=== PATIENT | female | born 1990 | race Asian ===

== ENCOUNTER → 2019-03-07 | Day surgery (SDC) | payer OTHER ==
--- NOTE | 2019-03-10 10:08 | OP ---
DATE OF OPERATION: 03/10/2019 PREOPERATIVE DIAGNOSIS: Left breast mass 11 o'clock, 2 cm from the nipple. POSTOPERATIVE DIAGNOSIS: Left breast mass 11 o'clock, 2 cm from the nipple. PROCEDURE: Left breast ultrasound-guided core biopsy with clip placement. ANESTHESIA: Local. ATTENDING SURGEON: Emma Perez MD ESTIMATED BLOOD LOSS: Minimal. COMPLICATIONS: None. DESCRIPTION OF PROCEDURE: Patient was made aware of the risks and benefits of the procedure and consented. She was placed in a supine position. Under sterile conditions with 2% lidocaine for local anesthesia, a small shayla was made in the skin. Using a 13-gauge suction biopsy device via lateral approach under ultrasound guidance, multiple cores were obtained and submitted to Pathology. Likewise, under ultrasound guidance, a bowtie clip was placed into the biopsy region. Well tolerated by patient. Steri-Strips and a sterile bandage was applied. We will contact her with results. EMMA PEREZ M.D. [id number]
--- NOTE | 2019-03-11 18:14 | PATH ---
Surgical Pathology Report Patient Name: TERRI FOY Med. Rec. #: [id number] /Age/Gender: 1990 (Age: 28) / F Account: [id number] Location: [facility] TO [facility] Taken: 03/07/2019 Received: 03/07/2019 Reported: 03/11/2019 Physicians: Sheri Sharp M.D. Specimen(s) Received LEFT BREAST BIOPSY 11:00 2cm FN Clinical History Nonpalpable lesion Ultrasound findings: Suspicious Final Diagnosis LEFT BREAST 11:00, 2CM FN, CORE BIOPSY: BREAST TISSUE WITH FIBROADENOMA. Electronically Signed Samantha Moyer M.D. Gross Description Received in formalin labeled "left breast biopsy 11:00, 2cmfn," is a 2.1 x 1.4 x 0.2 cm aggregate of multiple shelby-yellow, irregular to cylindrical portions of fibroadipose tissue. The formalin is filtered and the specimen is entirely submitted in one cassette. Time to formalin fixation: Less than one minute Total formalin fixation time: Approximately 6 hours. /03/07/2019 saudi/03/07/2019
== END | disposition home or self-care (01) ==
LOC: FRADUS-SUR 13:16
PROVIDERS: ATTEND Surgery Surgical Oncology
PROC: 0HBU3ZX Excision of Left Breast, Percutaneous Approach, Diagnostic (ICD-10-PCS; principal; 2019-03-07)
DX: D24.2 Benign neoplasm of left breast (principal); N63.22 Unspecified lump in the left breast, upper inner quadrant
CPT/HCPCS: 19083; 87899; 88305-TC; A4648

== ENCOUNTER 2022-01-24 10:19 | Emergency (ER) | payer OTHER ==
[2022-01-24 10:39] VITALS: BP 126/76; PULSE 68; RESP 17; TEMP 98.2; BMI 24.4
== END 2022-01-24 15:34 | disposition home or self-care (01) ==
LOC: JERFT 10:19
DX: R09.89 Other specified symptoms and signs involving the circulatory and respiratory systems (principal)
CPT/HCPCS: 70490-TC; 99284-25